=== PATIENT | female | born 1955 ===

== ENCOUNTER → 2020-06-29 | Outpatient (CLI) | payer OTHER | LOC: LAB 14:07 → LAB SHORT 14:07 | DX: R21 Rash and other nonspecific skin eruption (principal) | CPT/HCPCS: 88312 ==

== ENCOUNTER 2024-02-13 08:16 | Day surgery (SDC) | payer MEDICARE, OTHER ==
[~2024-02-13] VITALS: Ht 165.1 cm; Wt 69.3 kg
[~2024-02-13 08:16] MED LIST: Lactated Ringer's 1,000 ML IV ONE; propofoL 50 ML IV ONE
[2024-02-13] MEDS ORDERED: Lisinopril2.5 MG (08:31)
[2024-02-13] MEDS ORDERED: METO25 (08:31)
[2024-02-13] MEDS ORDERED: PREG75 (08:32)
[2024-02-13] MEDS ORDERED: EUTHYROX88 MCG (08:32)
[2024-02-13] MEDS ORDERED: PILO5 (08:33)
[2024-02-13] MEDS ORDERED: TRAZ50 (08:33)
[2024-02-13] MEDS ORDERED: SUMA25 (08:33)
[2024-02-13] MEDS ORDERED: ATOR20 (08:33)
[2024-02-13] MEDS ORDERED: SALAGEN (08:33)
[2024-02-13] MEDS ORDERED: Tessalon200 MG (08:34)
[2024-02-13] MEDS ORDERED: DERMACINRX FOL1 EAC2 (08:35)
[2024-02-13] MEDS ORDERED: SUPER B-50 COM1 EACH (08:35)
[2024-02-13] MEDS ORDERED: FISH OIL 1,0001 EA10 (08:35)
[2024-02-13] MEDS ORDERED: [UNRECOGNIZED DRUG - OTHER] (08:36)
[2024-02-13] MEDS ORDERED: CLOBETASOL EMOL15 G1 (08:36)
[2024-02-13] MEDS ORDERED: Triamcinolone A15 G3 (08:36)
[2024-02-13] MEDS ORDERED: Estrace Vagin42.5 GM (08:38)
[2024-02-13] MEDS ORDERED: MOUNJARO5 MG/0.5 M (08:39)
[2024-02-13] MEDS ORDERED: Lactated Ringer's 1,000 ML IV ONE (09:00)
[2024-02-13 10:20] VITALS: BP 125/67
== END 2024-02-13 10:21 | disposition home or self-care (01) ==
LOC: ORSCSDS 08:16
PROVIDERS: Specialist
PROC: 0DJD8ZZ Inspection of Lower Intestinal Tract, Via Natural or Artificial Opening Endoscopic (ICD-10-PCS; principal; 2024-02-13 09:30)
DX: K58.0 Irritable bowel syndrome with diarrhea (principal); R15.9 Full incontinence of feces; K64.8 Other hemorrhoids; K57.30 Diverticulosis of large intestine without perforation or abscess without bleeding; Z83.719 Family history of colon polyps, unspecified; Z79.85 Long-term (current) use of injectable non-insulin antidiabetic drugs
CPT/HCPCS: 82947; 88305; J2704; J7120